=== PATIENT | female | born 1970 | race Caucasian/White ===

== ENCOUNTER 2016-08-15 18:40 | Emergency (ER) | payer BC ==
[~2016-08-15] VITALS: Ht 157.5 cm; Wt 59.3 kg
[2016-08-15 18:44] VITALS: TEMP 36.8; Ht 157.5 cm; Wt 59.3 kg
[2016-08-15] MEDS ORDERED: OXYCODONE HCL IR 5 MG TAB (IMMEDIATE RELEASE) PO STA (19:11)
[2016-08-15] MEDS ORDERED: CHOL2000 PO (19:31)
[2016-08-15] MEDS ORDERED: LEVO88TA3 PO (19:31)
[2016-08-15] MEDS ORDERED: LORA-741 PO (19:31)
[2016-08-15] MEDS ORDERED: BUPRTAB51 PO (19:31)
[2016-08-15] MEDS ORDERED: FLUO20CA35 PO (19:31)
[2016-08-15] MEDS ORDERED: FLUT0.15 NAE (19:31)
[2016-08-15] MEDS ORDERED: CYCL0.052 OP (19:31)
[2016-08-15] MEDS ORDERED: OXYC1TAB3 PO (20:13)
[2016-08-15] MEDS ORDERED: OXYCODONE IR HOME PACK PO ONE (20:15)
--- NOTE | 2016-08-15 20:15 | EMERGENCY ROOM VISIT NOTE ---
History First contact with patient: 18:53 Chief Complaint: ABDOMINAL PAIN Stated Complaint: PAIN IN ABD History of Present Illness The patient is a 45 year old female who presents to the Emergency Room being sent here by her family physician for abdominal pain and abnormality seen on CAT scan. The patient states that she started with abdominal pain on Monday. She states that first she had left pelvic pain but does admit to history of ovarian cyst. For the past 2 days she has pain on the right side of her abdomen. She states that it varies in intensity but is constant. Currently she rates it at a 5 out of 10. The patient denies any nausea or vomiting. The patient denies any fever. She does admit to one or 2 episodes of loose stools since the onset of the symptoms but also had a normal bowel movement. The patient denies any urinary symptoms of frequency, urgency or dysuria. The patient denies any vaginal discharge. The patient states that her father has had multiple colon polyps but has not been diagnosed with colon cancer. The patient also states that she had a colonoscopy 2-3 years ago at [facility] which was normal. The patient called her family doctor today due to her symptoms and was seen and had laboratory work performed which she was told was normal. She was sent for the CAT scan of the abdomen and pelvis. Her doctor then called her later and told her to come to the emergency room and she states "they told me there was a possibility of appendicitis". The patient has not had anything today for pain. She was taking Motrin and Tylenol the past 2 days. Review of Systems 10 system review was performed and was negative unless stated otherwise history of present illness. Past Medical/Surgical History Surgery for intussusception at 8 months and 4 years old. Hypothyroidism Social History Smoking Status: Never Smoker Alcohol Use: occasionally Marital Status: Housing Status: lives with family Occupation Status: employed Current/Historical Medications Scheduled Bupropion (Wellbutrin-Xl), 300 MG PO DAILY Cholecalciferol (Vitamin D3), 2,000 INTER.UNIT PO DAILY Fluoxetine (Prozac), 20 MG PO DAILY Levothyroxine Sodium (Levothyroxine Sodium), 88 MCG PO DAILY Scheduled PRN Cyclosporine (Ophth) (Restasis), 1 DROP OP BID PRN for Dry Eye(s) Fluticasone Propionate (Nasal) (Flonase Allergy Relief), 2 SPRAYS DEEPTHI DAILY PRN for Allergy Symptoms Lorazepam (Ativan), 0.5 MG PO Q8 PRN for Anxiety Allergies Coded Allergies: No Known Allergies (Verified , 05/09/02) Physical Exam Vital Signs Date Time Temp Pulse Resp B/P Pulse Ox O2 Delivery O2 Flow Rate FiO2 08/15/16 18:44 36.8 91 18 114/72 99 Room Air Physical Exam GENERAL: 45-year-old white female appears in no acute distress. MENTAL Status: Alert and oriented 3. EYES: No icterus noted MOUTH: Mucosa is moist NECK: Supple, no lymphadenopathy noted. No carotid bruits noted. LUNGS: Clear auscultation without wheezes rales or rhonchi. CARDIAC: Regular rate and rhythm without murmur. Pulses is full and equal throughout. BACK: No CVA tenderness noted. ABDOMEN: Positive bowel sounds all 4 quadrants. Soft, patient has tenderness palpation in the entire right side of the abdomen. Left side nontender. No organomegaly or masses noted. EXTREMITIES: No cyanosis or edema noted. Medical Decision & Procedures ER Provider Diagnostic Interpretation: Patient Name: CRISTOBAL VILLAFANA Unit Number: [id number] Dictated: 08/15/161735 Transcribed: 08/15/161735 MS Printed Date/Time: [~ rep prt dt]/[~ rep prt tm] [~ rep ct labl] - [~ rep ct ivnm] [facility] [place] [address] Dictated: 08/15/161735 Transcribed: 08/15/16 173 MS Printed Date/Time: [~ rep prt dt]/[~ rep prt tm] [~ rep ct labl] - [~ rep ct ivnm] ABDOMEN AND PELVIS CT WITH IV AND ORAL CONTRAST CT DOSE: 240.07 mGy.cm HISTORY: Pain ABD PAIN TECHNIQUE: Multiaxial CT images of the abdomen and pelvis were performed following the use of intravenous and oral contrast. COMPARISON STUDY: None. FINDINGS: Lung bases are clear. There is a 1.5 cm x 2 cm hypodensity posterior right hepatic lobe transaxial image 17. This suggestive of a small hemangioma. The liver is otherwise uniform. Spleen is uniform. Kidneys enhance appropriately. No evidence for hydronephrosis. Masslike density at the level of the hepatic flexure. Measurements are 4.3 x 3.6 cm. Possibility of an annular neoplasm must be considered. Mild infiltrative change to the associated subcutaneous fat. Secondary considerations include focal colitis although neoplasm is the diagnosis of exclusion. Bowel pattern is nonobstructive. Bilateral ovarian cysts. These are at maximum 3.2 cm on the right and 2.5 cm on the left. Uterus is anteflexed. No significant abdominal pelvic or inguinal adenopathy. Osseous structures are negative for lytic or blastic process. Several small right lower quadrant and right flank nodes measuring up to 1.2 cm. IMPRESSION: 1. Masslike process involving the hepatic flexure of the colon. 2. Measurements are 4.3 x 3.6 cm with mild infiltrative change of the pericolonic fat. 3. Diagnostic considerations including neoplasm versus focal inflammatory process and/or appendagitis epiploica . 4. Colonoscopy/surgical consult is indicated. 5. Bilateral ovarian cysts. 6. Nonobstructive bowel pattern. Electronically signed by: Daniele Shipman M.D. 08/15/2016 5:43 PM Dictated Date/Time: 08/15/2016 5:36 PM The status of this report is Signed. Draft = Not yet reviewed or approved by Radiologist. Signed = Reviewed and approved by Radiologist. <AttendingPhy>Corine Monson M.D.</AttendingPhy> <FamilyPhy>Derrell Shankar MD</FamilyPhy> <PrimaryPhy>Derrell Shankar MD</PrimaryPhy> < UnitNumber>[id number]</UnitNumber> <VisitNumber>[id number]</VisitNumber> < PatientName>VILLAFANACRISTOBAL</PatientName> <DateOfBirth>1970</DateOfBirth> < Location>[facility]</Location> <ServiceDate>08/15/16</ServiceDate> <MNE>ESINDI</MNE> <OrderingPhy>Corine Monson M.D.</OrderingPhy> <OrderingPhyMNE>f rep ord dr dover </OrderingPhyMNE> <DictatingPhyMNE>f rep dict dr dover</DictatingPhyMNE> < CCListMNE>f rep ct mne</CCListMNE> <AdmittingPhyMNE>f pt admit dr dover</ AdmittingPhyMNE> <AttendingPhyMNE>f pt attend dr dover</AttendingPhyMNE> <ConsultingPhyMNE>f pt consult dr dover</ConsultingPhyMNE> <FamilyPhyMNE>f pt fam dr dover</FamilyPhyMNE> <OtherPhyMNE>f pt other dr dover</OtherPhyMNE> < PrimaryPhyMNE>f pt prim care dr dover</PrimaryPhyMNE> <ReferringPhyMNE>f pt referring dr dover</ReferringPhyMNE> Medications Administered Medications (Trade) Dose Ordered Sig/Casimiro Route Start Time Stop Time Status Last Admin Dose Admin Oxycodone HCl (Roxicodone Immediate Rel Tab) 5 mg NOW STAT PO 08/15/16 19:11 08/15/16 19:12 DC 08/15/16 19:22 5 MG ED Course The patient was evaluated. The patient's case was discussed with Dr. Wise who agreed with treatment plan. I reviewed the patient's EMR and got her records from [employer]. The patient had labs today. White count 10.8, hemoglobin 11.5, hematocrit 36, platelet count 219, BUN 9, creatinine 0.8, sodium 139, potassium 4.3 AST 20, alkaline phosphatase 71, a LT 18. Urinalysis was negative. I also obtained the communication from [facility] to the doctor's office which was either interpreted incorrectly or relayed incorrectly from the radiologic technician. There was confusion about a possible acute appendicitis but the diagnosis was actually appendagitis. The other differential and most likely differential was neoplasm. I called the radiologist who read the scan, Dr. Shipman who stated the diagnosis of exclusion is neoplasm. He did state that there was no evidence of acute appendicitis on the scan.. The patient was informed of the miscommunication. The patient was given oxycodone IR 5 mg by mouth for pain. The patient was reevaluated and was feeling better. I offered to have the casework manager set up an appointment with gastroenterology that she stated she will do this on her own. The patient was discharged home in stable condition with her driving. Medical Decision Differential diagnosis include neoplasm, diverticulitis, inflammatory process, appendagitis, acute appendicitis Impression Primary Impression: Right sided abdominal pain Additional Impression: Abnormal abdominal CT scan Departure Information Dispostion Home / Self-Care Condition GOOD Prescriptions Oxycodone Immediate Rel Tab (ROXICODONE IR) 5 Mg Tab 1-2 TAB PO Q6 Y for Severe Pain, #20 TAB Prov: Abigail Shipman PA-C 08/15/16 Referrals Derrell Shankar MD (PCP) Forms Call Back Authorization, HOME CARE DOCUMENTATION FORM, IMPORTANT VISIT INFORMATION Patient Instructions Abdominal Pain - [facility], [facility] Additional Instructions Ibuprofen 600 mg every 6 hours with food for pain. Take OxyIR as needed for more severe pain. Do not drive while taking the OxyIR. This may make you constipated so I would recommend taking MiraLAX daily while taking the oxycodone. Call gastroenterology as soon as possible for a colonoscopy. If you experience any severe abdominal pain, fevers, uncontrolled nausea vomiting return to ER immediately. Problem Qualifiers
[2016-08-15 20:22] VITALS: BP 103/66; PULSE 80; O2SAT 99
== END 2016-08-15 20:24 | disposition home or self-care (01) ==
LOC: C.EDB 18:41
DX: R10.9 Unspecified abdominal pain (principal); R93.5 Abnormal findings on diagnostic imaging of other abdominal regions, including retroperitoneum; E03.9 Hypothyroidism, unspecified; Z79.899 Other long term (current) drug therapy

== ENCOUNTER → 2016-08-15 | Outpatient (CLI) | payer BC ==
[~2016-08-15] MED LIST: BUPRTAB51 PO; CHOL2000 PO; CIPR-255 PO; CYCL0.052 OP; FLUO20CA35 PO; FLUT0.15 NAE; LEVO88TA3 PO; LORA-741 PO; METR-162 PO; OPTIRAY 320 IV PRN; OXYC1TAB3 PO
--- NOTE | 2016-08-15 17:44 | DIAGNOSTIC IMAGING REPORT ---
ABDOMEN AND PELVIS CT WITH IV AND ORAL CONTRAST CT DOSE: 240.07 mGy.cm HISTORY: Pain ABD PAIN TECHNIQUE: Multiaxial CT images of the abdomen and pelvis were performed following the use of intravenous and oral contrast. COMPARISON STUDY: None. FINDINGS: Lung bases are clear. There is a 1.5 cm x 2 cm hypodensity posterior right hepatic lobe transaxial image 17. This suggestive of a small hemangioma. The liver is otherwise uniform. Spleen is uniform. Kidneys enhance appropriately. No evidence for hydronephrosis. Masslike density at the level of the hepatic flexure. Measurements are 4.3 x 3.6 cm. Possibility of an annular neoplasm must be considered. Mild infiltrative change to the associated subcutaneous fat. Secondary considerations include focal colitis although neoplasm is the diagnosis of exclusion. Bowel pattern is nonobstructive. Bilateral ovarian cysts. These are at maximum 3.2 cm on the right and 2.5 cm on the left. Uterus is anteflexed. No significant abdominal pelvic or inguinal adenopathy. Osseous structures are negative for lytic or blastic process. Several small right lower quadrant and right flank nodes measuring up to 1.2 cm. IMPRESSION: 1. Masslike process involving the hepatic flexure of the colon. 2. Measurements are 4.3 x 3.6 cm with mild infiltrative change of the pericolonic fat. 3. Diagnostic considerations including neoplasm versus focal inflammatory process and/or appendagitis epiploica . 4. Colonoscopy/surgical consult is indicated. 5. Bilateral ovarian cysts. 6. Nonobstructive bowel pattern. Electronically signed by: Daniele Shipman M.D. 08/15/2016 5:43 PM Dictated Date/Time: 08/15/2016 5:36 PM
== END | disposition home or self-care (01) ==
LOC: C.CTS 14:59
PROVIDERS: ATTEND Internal Medicine
DX: M54.5 Low back pain (principal); R10.84 Generalized abdominal pain

== ENCOUNTER 2016-09-15 16:50 | Emergency (ER) | payer BC ==
[~2016-09-15] VITALS: Ht 157.5 cm; Wt 59.0 kg
[~2016-09-15 16:50] MED LIST changes: -CIPR-255 PO; -METR-162 PO; -OPTIRAY 320 IV PRN
[2016-09-15 16:58] VITALS: TEMP 36.4; Ht 157.5 cm; Wt 59.0 kg
[2016-09-15] MEDS ORDERED: ONDANSETRON INJ 2 MG/ML 2 ML VIAL IV STA (17:57)
[2016-09-15] MEDS ORDERED: SODIUM CHLORIDE 0.9% 1000ML 1,000 ML IV STA (17:57)
[2016-09-15] MEDS ORDERED: MoRPHine SULFATE 4 MG/ML 1 ML CARP\\VIAL IV PRN (18:00)
--- NOTE | 2016-09-15 18:05 | EMERGENCY ROOM VISIT NOTE ---
History Report prepared by Tabitha: Farzad Pepper Under the Supervision of: Dr. Graham Villatoro D.O. First contact with patient: 17:51 Chief Complaint: ABDOMINAL PAIN Stated Complaint: PAIN IN BACK AND LOWER RT SIDE, HX DIVERTICULITIS Nursing Triage Summary: triage note: pt ambulatory to triage. pt reports she was dx with diverticulitis 3 weeks ago. pt reports "i am having right lower back pain that wraps around which increased yesterday." History of Present Illness The patient is a 46 year old female who presents to the Emergency Room with complaints of constant right flank pain beginning the other day. The patient states that her pain radiates to the right side of her abdomen. She reports that she was diagnosed with diverticulitis a few weeks ago, and her symptoms feel very similar. The patient notes that she had a CT and colonoscopy when she was diagnosis with diverticulitis, and she was given antibiotics for a week. She denies fever, chills, nausea, vomiting, shortness of breath, chest pain, hematuria, and hematochezia. The patient states that she called her surgeon and was told to come to the ER. She denies a history of kidney stones. The patient reports that her last know menstrual period was a few weeks ago, and it was normal. Source of History: patient Onset: a few days ago Position: other (right flank) Timing: constant Associated Symptoms: + abdominal pain, No fevers, No chills, No chest pain, No SOB, No nausea, No vomiting, No hematochezia, No urinary symptoms Review of Systems See HPI for pertinent positives & negatives. A total of 10 systems reviewed and were otherwise negative. Past Medical & Surgical Medical Problems: (1) Diverticulitis Family History Patient reports no known family medical history. Social History Smoking Status: Never Smoker Alcohol Use: occasionally Marital Status: Housing Status: lives with family Occupation Status: employed Current/Historical Medications Scheduled Bupropion (Wellbutrin-Xl), 300 MG PO DAILY Cholecalciferol (Vitamin D3), 2,000 INTER.UNIT PO DAILY Ciprofloxacin Hcl (Cipro), 500 MG PO BID Fluoxetine (Prozac), 20 MG PO DAILY Levothyroxine Sodium (Levothyroxine Sodium), 88 MCG PO DAILY Metronidazole (Flagyl), 500 MG PO TID Scheduled PRN Cyclosporine (Ophth) (Restasis), 1 DROP OP BID PRN for Dry Eye(s) Fluticasone Propionate (Nasal) (Flonase Allergy Relief), 2 SPRAYS DEEPTHI DAILY PRN for Allergy Symptoms Lorazepam (Ativan), 0.5 MG PO Q8 PRN for Anxiety Oxycodone Immediate Rel Tab (Roxicodone Ir), 1-2 TAB PO Q4H PRN for Severe Pain Allergies Coded Allergies: No Known Allergies (Verified , 09/15/16) Physical Exam Vital Signs Date Time Temp Pulse Resp B/P (MAP) Pulse Ox O2 Delivery O2 Flow Rate FiO2 09/15/16 19:34 84 20 125/69 100 09/15/16 16:58 36.4 80 18 120/76 96 Room Air Physical Exam GENERAL: Patient is awake, alert, and in no acute distress. Patient is resting comfortably and showing mild signs of anxiety EYES: The conjunctivae are clear. The pupils are round and reactive. EARS, NOSE, MOUTH AND THROAT: The nose is without any evidence of any deformity. Mucous membranes are moist tongue is midline NECK: The neck is nontender and supple. RESPIRATORY: Normal respiratory effort is noted there is no evidence of wheezing rhonchi or rales CARDIOVASCULAR: Regular rate and rhythm noted there no murmurs rubs or gallops normal S1 normal S2 GASTROINTESTINAL: The abdomen is mildly distended and soft. Bowel sounds are present in all quadrants. No guarding or rigidity. Right upper and left lower quadrant are tender to palpation. BACK: No midline tenderness or or step-off noted range of motion in flexion extension as well as rotation no signs of muscle spasm noted MUSCULOSKELETAL/EXTREMITIES: There is no evidence of gross deformity full range of motion is noted in the hips and shoulders SKIN: There is no obvious evidence of any rash. There are no petechiae, pallor or cyanosis noted. NEUROLOGIC: Patient is awake alert and oriented x3 strength is symmetric patellar reflexes are 2+ bilaterally Medical Decision & Procedures ER Provider Diagnostic Interpretation: X-ray results as stated below per interpretation by me and the radiologist. KUB CLINICAL HISTORY: Generalized abdominal pain. FINDINGS: 2 AP supine abdominal radiographs are correlated with abdominal CT dated 08/15/2016. There is a nonobstructed abdominal bowel gas pattern noting mild to moderate colonic fecal retention. No evidence of intraperitoneal free air is seen on these supine views. There are no abnormal abdominal calcifications. Phleboliths are identified in the pelvis. The bony structures appear intact. The lung bases are clear as imaged. IMPRESSION: Nonobstructed abdominal bowel gas pattern noting mild to moderate colonic fecal retention. Electronically signed by: Zurdo Tinoco M.D. 09/15/2016 6:50 PM Dictated Date/Time: 09/15/2016 6:49 PM SINGLE VIEW CHEST CLINICAL HISTORY: Generalized abdominal pain. FINDINGS: An AP, portable, upright chest radiograph is obtained. No prior studies are available for comparison at the time of dictation. The cardiomediastinal silhouette is unremarkable. The lungs and pleural spaces are clear. No pneumothorax is seen. The bony thorax is grossly intact. IMPRESSION: No active disease in the chest. Electronically signed by: Zurdo Tinoco M.D. 09/15/2016 6:51 PM Dictated Date/Time: 09/15/2016 6:50 PM Laboratory Results 09/15/16 18:00 Red Blood Count 4.20, Mean Corpuscular Volume 88.3, Mean Corpuscular Hemoglobin 28.6, Mean Corpuscular Hemoglobin Concent 32.3, Mean Platelet Volume 10.7, Neutrophils (%) (Auto) 50.1, Lymphocytes (%) (Auto) 34.9, Monocytes (%) (Auto) 11.4, Eosinophils (%) (Auto) 3.1, Basophils (%) (Auto) 0.3, Neutrophils # (Auto ) 2.89, Lymphocytes # (Auto) 2.02, Monocytes # (Auto) 0.66, Eosinophils # (Auto ) 0.18, Basophils # (Auto) 0.02 09/15/16 18:00 Test 09/15/16 18:00 White Blood Count 5.78 K/uL (4.8-10.8) Red Blood Count 4.20 M/uL (4.2-5.4) Hemoglobin 12.0 g/dL (12.0-16.0) Hematocrit 37.1 % (37-47) Mean Corpuscular Volume 88.3 fL (80-100) Mean Corpuscular Hemoglobin 28.6 pg (25-34) Mean Corpuscular Hemoglobin Concent 32.3 g/dl (32-36) Platelet Count 224 K/uL (130-400) Mean Platelet Volume 10.7 fL (7.4-10.4) Neutrophils (%) (Auto) 50.1 % Lymphocytes (%) (Auto) 34.9 % Monocytes (%) (Auto) 11.4 % Eosinophils (%) (Auto) 3.1 % Basophils (%) (Auto) 0.3 % Neutrophils # (Auto) 2.89 K/uL (1.4-6.5) Lymphocytes # (Auto) 2.02 K/uL (1.2-3.4) Monocytes # (Auto) 0.66 K/uL (0.11-0.59) Eosinophils # (Auto) 0.18 K/uL (0-0.5) Basophils # (Auto) 0.02 K/uL (0-0.2) RDW Standard Deviation 41.1 fL (36.4-46.3) RDW Coefficient of Variation 12.8 % (11.5-14.5) Immature Granulocyte % (Auto) 0.2 % Immature Granulocyte # (Auto) 0.01 K/uL (0.00-0.02) Urine Color YELLOW Urine Appearance CLEAR (CLEAR) Urine pH 5.5 (4.5-7.5) Urine Specific [place] 1.014 (1.000-1.030) Urine Protein NEG (NEG) Urine Glucose (UA) NEG (NEG) Urine Ketones NEG (NEG) Urine Occult Blood NEG (NEG) Urine Nitrite NEG (NEG) Urine Bilirubin NEG (NEG) Urine Urobilinogen NEG (NEG) Urine Leukocyte Esterase NEG (NEG) Anion Gap 8.0 mmol/L (3-11) Est Creatinine Clear Calc Drug Dose 69.8 ml/min Estimated GFR () 104.2 Estimated GFR (Non- 89.9 BUN/Creatinine Ratio 10.9 (10-20) Calcium Level 8.7 mg/dl (8.5-10.1) Total Bilirubin 0.4 mg/dl (0.2-1) Direct Bilirubin < 0.1 mg/dl (0-0.2) Aspartate Amino Transf (AST/SGOT) 18 U/L (15-37) Alanine Aminotransferase (ALT/SGPT) 25 U/L (12-78) Alkaline Phosphatase 67 U/L (45-117) Total Protein 7.4 gm/dl (6.4-8.2) Albumin 3.7 gm/dl (3.4-5.0) Lipase 191 U/L (73-393) Human Chorionic Gonadotropin, Qual NEG (NEG) Laboratory results per my review. Medications Administered Medications (Trade) Dose Ordered Sig/Casimiro Route Start Time Stop Time Status Last Admin Dose Admin Sodium Chloride 1,000 ml @ 999 mls/hr Q1H1M STAT IV 09/15/16 17:57 09/15/16 18:57 DC 09/15/16 18:13 999 MLS/HR Ondansetron HCl (Zofran Inj) 4 mg NOW STAT IV 09/15/16 17:57 09/15/16 17:59 DC 09/15/16 18:13 4 MG Morphine Sulfate (MoRPHine SULFATE INJ) 4 mg Q15M PRN IV 09/15/16 18:00 09/15/16 19:56 DC 09/15/16 18:14 4 MG Ciprofloxacin (Cipro Tab) 500 mg NOW STAT PO 09/15/16 19:15 09/15/16 19:16 DC 09/15/16 19:30 500 MG Metronidazole (Flagyl Tab) 500 mg NOW STAT PO 09/15/16 19:15 09/15/16 19:16 DC 09/15/16 19:30 500 MG Ciprofloxacin (Cipro 500MG Home Pack) 1 homepack UD ONCE PO 09/15/16 19:15 09/15/16 19:16 DC 09/15/16 19:29 1 HOMEPACK Oxycodone HCl (Roxicodone Immediate Rel 5MG Home Pack) 1 homepack UD ONCE PO 09/15/16 19:15 09/15/16 19:16 DC 09/15/16 19:30 1 HOMEPACK Ondansetron HCl (ZOFRAN ODT 4MG Home Pack) 1 homepack UD ONCE PO 09/15/16 19:15 09/15/16 19:16 DC 09/15/16 19:30 1 HOMEPACK ED Course 175: The patient was evaluated in room B03B. A complete history and physical examination were performed. 1756: Ordered Zofran Inj 4mg IV, NSS 1,000 ml @ 999 mls/hr IV 1800: Ordered Morphine Sulfate 4mg IV 1914: Ordered Ondansetron HCl 1 homepack PO, Oxycodone HCl 1 homepack PO, Ciprofloxacin 1 homepack PO, Flagyl Tab 500mg PO, Cipro Tab 500mg PO 1915: I discussed the patient's case with Dr Dewey, General Surgery. He recommends the patient is given another dose of antibiotics and follows up with surgery as an outpatient. 1932: Upon reevaluation, the patient is resting comfortably. I discussed the results and treatment plan with her. She verbalized agreement of the treatment plan. The patient was discharged home. Medical Decision Differential diagnosis: Etiologies such as appendicitis, diverticulitis, PUD, biliary pathology, UTI, pancreatitis, obstruction, mesenteric ischemia, aortic pathology, infections, inflammatory bowel disease, renal colic, as well as others were entertained. Medication Reconciliation: I attest that I have personally reviewed the patient' s current medications list. Blood pressure screening: Patient was found to have normal blood pressure on screening and does not require follow-up. The patient is a 46-year-old female who presented to the emergency department for evaluation of right upper quadrant and right flank pain. The patient has a history of diverticulitis which was diagnosed at the end of last month. She had a CAT scan which was very worrisome for an annular lesion in her hepatic flexure of her large colon. She had follow-up with GI and the patient had a colonoscopy which did not reveal any acute tumor but did show signs of diverticulitis in this region. The patient started having pain which returned recently. She did have an entire course of antibiotics and felt that the pain was significantly improved after this course. The patient called her general surgeon today and was referred to the emergency department. Her physical exam did not appear to be consistent with an acute surgical abdomen at this time. I discussed the patient's laboratory radiographic studies with her as well as the on-call general surgeon. At this time I recommended continued course of antibiotics and follow-up with her primary general surgeon this is possible. She was also encouraged to return to the emergency department immediately if symptoms change worsen or need arises. Consults Time Called: 1909 Consulting Physician: Dr. Dewey, General Surgery Returned Call: 1915 I discussed the patient's case with Dr Dewey, General Surgery. He recommends the patient is given another dose of antibiotics and follows up with surgery as an outpatient. Impression Primary Impression: Diverticulitis Additional Impression: RUQ abdominal pain Scribe Attestation The scribe's documentation has been prepared under my direction and personally reviewed by me in its entirety. I confirm that the note above accurately reflects all work, treatment, procedures, and medical decision making performed by me. Departure Information Dispostion Home / Self-Care Prescriptions Oxycodone Immediate Rel Tab (ROXICODONE IR) 5 Mg Tab 1-2 TAB PO Q4H Y for Severe Pain, #24 TAB Prov: Graham Villatoro, DO 09/15/16 Metronidazole (FLAGYL) 500 Mg Tab 500 MG PO TID, #42 TAB Prov: Graham Villatoro, DO 09/15/16 Ciprofloxacin Hcl (CIPRO) 500 Mg Tab 500 MG PO BID, #28 TAB Prov: Graham Villatoro, DO 09/15/16 Referrals No Doctor, Assigned (PCP) Forms Call Back Authorization, HOME CARE DOCUMENTATION FORM, IMPORTANT VISIT INFORMATION Patient Instructions ED Diverticulitis, [facility] Additional Instructions Call the surgeon to schedule a follow-up appointment. Continue all medications as prescribed. Drink plenty clear liquids. Continue using Motrin and Tylenol as directed for mild pain. Return to the emergency department immediately if symptoms worsen or if he develop high fever rigid abdomen severe pain or if need arises. Problem Qualifiers Primary Impression: Diverticulitis Diverticulitis site: large intestine Diverticulitis bleeding: without bleeding Diverticulitis complication: unspecified complication status Qualified Codes: K57.32 - Diverticulitis of large intestine without perforation or abscess without bleeding
[2016-09-15 18:16] LABS: BASO % 0.3 %; BASO ABS # 0.02 K/uL (0-0.2); COMPLETE YES; EOS % 3.1 %; HEMATOCRIT 37.1 % (37-47); IG% 0.2 %; LYMPH % 34.9 %; LYMPH ABS # 2.02 K/uL (1.2-3.4); MEAN CELL VOLUME 88.3 fL (80-100); MEAN CORPUSCULAR HEMOGLOBIN 28.6 pg (25-34); MEAN CORPUSCULAR HGB CONC 32.3 g/dl (32-36); MEAN PLATELET VOLUME 10.7 fL (7.4-10.4); MONO % 11.4 %; NEUT % 50.1 %; PLATELET COUNT 224 K/uL (130-400); WHITE BLOOD COUNT 5.78 K/uL (4.8-10.8)
[2016-09-15 18:20] LABS: URINE APPEARANCE CLEAR (CLEAR); URINE BILIRUBIN NEG (NEG); URINE COLOR YELLOW; URINE NITRITE NEG (NEG); URINE PH 5.5 (4.5-7.5); URINE SPECIFIC GRAVITY 1.014 (1.000-1.030); UROBILINOGEN NEG (NEG)
[2016-09-15 18:21] LABS: MANUAL MICROSCOPIC REQUIRED? NO; REVIEW REQ? NO
[2016-09-15 18:37] LABS: ALT/SGPT 25 U/L (12-78); BLOOD UREA NITROGEN 9 mg/dl (7-18); BUN/CREATININE RATIO 10.9 (10-20); CARBON DIOXIDE 26 mmol/L (21-32); CHLORIDE 105 mmol/L (98-107); CREATININE 0.78 mg/dl (0.60-1.20); GLUCOSE 83 mg/dl (70-99); POTASSIUM 3.6 mmol/L (3.5-5.1); SODIUM 139 mmol/L (136-145)
[2016-09-15 18:38] LABS: PREG INTERNAL NEGATIVE QC NEG CLEAR BACKGROUND; PREG INTERNAL POSITIVE QC POS CONTROL LINE
[2016-09-15 18:40] LABS: ALKALINE PHOSPHATASE 67 U/L (45-117); AST/SGOT 18 U/L (15-37)
[2016-09-15 18:42] LABS: CALCIUM 8.7 mg/dl (8.5-10.1)
--- NOTE | 2016-09-15 18:51 | DIAGNOSTIC IMAGING REPORT ---
KUB CLINICAL HISTORY: Generalized abdominal pain. FINDINGS: 2 AP supine abdominal radiographs are correlated with abdominal CT dated 08/15/2016. There is a nonobstructed abdominal bowel gas pattern noting mild to moderate colonic fecal retention. No evidence of intraperitoneal free air is seen on these supine views. There are no abnormal abdominal calcifications. Phleboliths are identified in the pelvis. The bony structures appear intact. The lung bases are clear as imaged. IMPRESSION: Nonobstructed abdominal bowel gas pattern noting mild to moderate colonic fecal retention. Electronically signed by: Zurdo Tinoco M.D. 09/15/2016 6:50 PM Dictated Date/Time: 09/15/2016 6:49 PM
--- NOTE | 2016-09-15 18:52 | DIAGNOSTIC IMAGING REPORT ---
SINGLE VIEW CHEST CLINICAL HISTORY: Generalized abdominal pain. FINDINGS: An AP, portable, upright chest radiograph is obtained. No prior studies are available for comparison at the time of dictation. The cardiomediastinal silhouette is unremarkable. The lungs and pleural spaces are clear. No pneumothorax is seen. The bony thorax is grossly intact. IMPRESSION: No active disease in the chest. Electronically signed by: Zurdo Tinoco M.D. 09/15/2016 6:51 PM Dictated Date/Time: 09/15/2016 6:50 PM
[2016-09-15] MEDS ORDERED: OXYCODONE IR HOME PACK PO ONE (19:15)
[2016-09-15] MEDS ORDERED: ONDANSETRON HOME PACK 4MG OD TAB PO ONE (19:15)
[2016-09-15] MEDS ORDERED: CIPROFLOXACIN 500 MG TAB PO STA (19:15)
[2016-09-15] MEDS ORDERED: CIPROFLOXACIN 500MG HOME PACK PO ONE (19:15)
[2016-09-15] MEDS ORDERED: METRONIDAZOLE 250 MG TAB PO STA (19:15)
[2016-09-15] MEDS ORDERED: METR-162 PO (19:18)
[2016-09-15] MEDS ORDERED: OXYC1TAB3 PO (19:18)
[2016-09-15] MEDS ORDERED: CIPR-255 PO (19:18)
[2016-09-15 19:34] VITALS: BP 125/69; PULSE 84; O2SAT 100
== END 2016-09-15 19:35 | disposition home or self-care (01) ==
LOC: C.EDB 16:51
DX: K57.92 Diverticulitis of intestine, part unspecified, without perforation or abscess without bleeding (principal); R10.11 Right upper quadrant pain; Z79.899 Other long term (current) drug therapy

== ENCOUNTER 2016-09-16 12:38 | Emergency (ER) | payer BC ==
[~2016-09-16] VITALS: Ht 157.5 cm; Wt 59.5 kg
[~2016-09-16 12:38] MED LIST changes: +CIPR-255 PO; +METR-162 PO
[2016-09-16 12:45] VITALS: Ht 157.5 cm; Wt 59.5 kg
[2016-09-16] MEDS ORDERED: SODIUM CHLORIDE 0.9% 1000ML 1,000 ML IV STA (13:23)
[2016-09-16] MEDS ORDERED: ONDANSETRON INJ 2 MG/ML 2 ML VIAL IV STA (13:23)
[2016-09-16] MEDS ORDERED: OPTIRAY 320 IV PRN (13:30)
[2016-09-16 13:40] LABS: BASO % 0.2 %; BASO ABS # 0.02 K/uL (0-0.2); COMPLETE YES; HEMATOCRIT 37.3 % (37-47); IG% 0.2 %; LYMPH % 15.3 %; LYMPH ABS # 1.51 K/uL (1.2-3.4); MEAN CELL VOLUME 89.4 fL (80-100); MEAN CORPUSCULAR HGB CONC 32.4 g/dl (32-36); MEAN PLATELET VOLUME 11.3 fL (7.4-10.4); MONO % 7.3 %; PLATELET COUNT 214 K/uL (130-400); RED BLOOD COUNT 4.17 M/uL (4.2-5.4); WHITE BLOOD COUNT 9.85 K/uL (4.8-10.8)
[2016-09-16 14:05] LABS: CREATININE 0.8 mg/dl (0.60-1.20)
[2016-09-16 14:06] LABS: BUN/CREATININE RATIO 10.5 (10-20); CALCIUM 8.6 mg/dl (8.5-10.1); POTASSIUM 3.8 mmol/L (3.5-5.1)
--- NOTE | 2016-09-16 14:15 | DIAGNOSTIC IMAGING REPORT ---
SINGLE VIEW CHEST CLINICAL HISTORY: Generalized abdominal pain. FINDINGS: An AP, portable, upright chest radiograph is compared to study dated 09/15/2016. The cardiomediastinal silhouette is unremarkable. The lungs and pleural spaces are clear. No pneumothorax is seen. The bony thorax is grossly intact. There is minimal S-shaped thoracic scoliosis. IMPRESSION: No active disease in the chest. Electronically signed by: Zurdo Tinoco M.D. 09/16/2016 2:14 PM Dictated Date/Time: 09/16/2016 2:14 PM
--- NOTE | 2016-09-16 14:17 | EMERGENCY ROOM VISIT NOTE ---
History First contact with patient: 13:15 Chief Complaint: NAUSEA Stated Complaint: NAUSEA, CHILLS, BACK PAIN, DIVERTICULITIS Nursing Triage Summary: Pt c/o nausea, headache, and back pain Pt dx with diverticulitis Seen in ED yesterday. Denies abd pain or diarrhea. History of Present Illness The patient is a 46 year old female who presents to the Emergency Room with complaints of abdominal pain. The patient had diverticulitis at the end of last month and was treated with Cipro and Flagyl. The patient came to the emergency department yesterday because she was having worsening abdominal pain. Laboratory studies were obtained. She was given prescriptions for Cipro and Flagyl. She was given a prescription for oxycodone but did not take any. She states that today she has nausea which is the most distressing symptom. She states she also has a mild headache. She rates her discomfort a 4/10. She denies any fevers. She denies any vomiting. She denies any diarrhea. She denies any pain in her chest or trouble breathing. She states that she has a scheduled CT scan next month for a recheck. However, the pain has worsened and she presents to the emergency department today. Review of Systems A 10 system review of systems was completed with positives and pertinent negatives listed in the HPI. Past Medical/Surgical History Medical Problems: (1) Diverticulitis Family History Patient reports no known family medical history. Social History Smoking Status: Never Smoker Alcohol Use: occasionally Marital Status: Housing Status: lives with family Occupation Status: employed Current/Historical Medications Scheduled Bupropion (Wellbutrin-Xl), 300 MG PO DAILY Cholecalciferol (Vitamin D3), 2,000 INTER.UNIT PO DAILY Ciprofloxacin Hcl (Cipro), 500 MG PO BID Fluoxetine (Prozac), 20 MG PO DAILY Levothyroxine Sodium (Levothyroxine Sodium), 88 MCG PO DAILY Metronidazole (Flagyl), 500 MG PO TID Scheduled PRN Cyclosporine (Ophth) (Restasis), 1 DROP OP BID PRN for Dry Eye(s) Fluticasone Propionate (Nasal) (Flonase Allergy Relief), 2 SPRAYS DEEPTHI DAILY PRN for Allergy Symptoms Lorazepam (Ativan), 0.5 MG PO Q8 PRN for Anxiety Oxycodone Immediate Rel Tab (Roxicodone Ir), 1-2 TAB PO Q4H PRN for Severe Pain Allergies Coded Allergies: No Known Allergies (Verified , 09/16/16) Physical Exam Vital Signs Date Time Temp Pulse Resp B/P (MAP) Pulse Ox O2 Delivery O2 Flow Rate FiO2 09/16/16 17:10 36.5 75 16 118/71 100 09/16/16 17:00 75 16 118/71 100 Room Air 09/16/16 14:21 76 17 119/70 100 Room Air 09/16/16 12:45 36.5 76 16 119/76 99 Room Air Physical Exam VITALS: Vitals are noted on the nurse's note and reviewed by myself. Vital signs stable. GENERAL: This is a 46-year-old female, in no acute distress, nondiaphoretic, well-developed well-nourished. SKIN: The skin was without rashes, erythema, edema, or bruising. There is no tenting of the skin. Capillary reflex less than 2 seconds. HEAD: Normocephalic atraumatic. EARS: The external ears are normal in appearance EYES: Pupils equal round and reactive to light and accommodation. Conjunctivae without injection, sclerae without icterus. Extraocular movements intact. NOSE: Patent, turbinates without inflammation or discharge. MOUTH: Mucous membranes moist. Tonsils are not enlarged. Pharynx without erythema or exudate. Uvula midline. Airway patent. Tongue does not deviate. NECK: Supple without nuchal rigidity. No JVD. HEART: Regular rate and rhythm without murmurs gallops or rubs. LUNGS: Clear to auscultation bilaterally without wheezes, rales or rhonchi. No retractions or accessory muscle use. ABDOMEN: Positive bowel sounds x 4. Soft, moderate left lower abdominal tenderness, without masses or organomegaly. MUSCULOSKELETAL: No muscle atrophy, erythema, or edema noted. Full range of motion in all extremities. No tenderness to palpation. Normal gait. Strength 5/5 throughout. NEURO: Patient was alert and oriented to person place and time. No focal neurological deficits. Medical Decision & Procedures ER Provider Diagnostic Interpretation: [~ rep ct add3]] CT SCAN OF THE ABDOMEN AND PELVIS WITH IV CONTRAST CLINICAL HISTORY: Generalized abdominal pain. Reported history of recent diverticulitis. COMPARISON STUDY: Abdominal CT dated 08/15/2016. TECHNIQUE: Following the IV administration of 115 cc of Optiray 320, CT scan of the abdomen and pelvis is performed from the lung bases to the proximal femora. Images are reviewed in the axial, sagittal, and coronal planes. IV contrast was administered without complication. Automated dose control exposure was utilized. CT DOSE: 261.20 mGy.cm FINDINGS: Lung bases: The heart is normal in size and without pericardial effusion. The lung bases are clear noting dependent atelectasis. Liver: The contrast-enhanced liver is normal in size, contour, and attenuation. There is no intrahepatic biliary ductal dilatation. The hepatic veins and portal veins are patent. A 2.0 cm low-attenuation lesion in the posterior right lobe of the liver on image were 104 demonstrates foci of peripheral nodular enhancement. A smaller similar-appearing lesion measuring 1.0 cm is seen in the right lobe on image #82. Although incomplete characterized these likely represent benign hemangiomas. Gallbladder: Unremarkable. Spleen: Normal in size and attenuation. Pancreas: Unremarkable. Adrenal glands: Unremarkable. Kidneys: The contrast enhanced kidneys are normal in size and without hydronephrosis. The kidneys enhance symmetrically. Abdominal vasculature: The abdominal aorta is normal in course and caliber. Bowel: The small bowel and colon are normal in course and caliber. There are scattered diverticula noted in the right colon. Inflammatory process at the hepatic flexure seen on 08/15/2016 has resolved. The appendix is not visualized. Peritoneum: There is no intraperitoneal free air or abdominal ascites. There is a small fat-containing umbilical hernia. Postoperative changes seen within the ventral upper abdominal wall. Lymphadenopathy: None. Pelvic viscera: The bladder, uterus, and adnexa are normal as visualized noting bilateral ovarian follicles. Skeletal structures: No lytic or blastic lesions are seen. There is moderate degenerative disc space narrowing at L5-S1. IMPRESSION: 1. There are no acute infectious or inflammatory findings in the abdomen or pelvis. 2. The inflammatory process involving the hepatic flexure of the colon seen on 08/15/2016 has resolved. 3. There are scattered diverticula of the right colon identified. 4. There are 2 low suspicion liver lesions identified. Alternatively incompletely characterized, the enhancement kinetics strongly suggest benign hemangiomas. SINGLE VIEW CHEST CLINICAL HISTORY: Generalized abdominal pain. FINDINGS: An AP, portable, upright chest radiograph is compared to study dated 09/15/2016. The cardiomediastinal silhouette is unremarkable. The lungs and pleural spaces are clear. No pneumothorax is seen. The bony thorax is grossly intact. There is minimal S-shaped thoracic scoliosis. IMPRESSION: No active disease in the chest. Laboratory Results 09/16/16 12:55 Red Blood Count 4.17, Mean Corpuscular Volume 89.4, Mean Corpuscular Hemoglobin 29.0, Mean Corpuscular Hemoglobin Concent 32.4, Mean Platelet Volume 11.3, Neutrophils (%) (Auto) 76.0, Lymphocytes (%) (Auto) 15.3, Monocytes (%) (Auto) 7.3, Eosinophils (%) (Auto) 1.0, Basophils (%) (Auto) 0.2, Neutrophils # (Auto) 7.48, Lymphocytes # (Auto) 1.51, Monocytes # (Auto) 0.72, Eosinophils # (Auto) 0.10, Basophils # (Auto) 0.02 09/16/16 12:55 Test 09/16/16 12:55 09/16/16 13:50 09/16/16 14:00 White Blood Count 9.85 K/uL (4.8-10.8) Red Blood Count 4.17 M/uL (4.2-5.4) Hemoglobin 12.1 g/dL (12.0-16.0) Hematocrit 37.3 % (37-47) Mean Corpuscular Volume 89.4 fL (80-100) Mean Corpuscular Hemoglobin 29.0 pg (25-34) Mean Corpuscular Hemoglobin Concent 32.4 g/dl (32-36) Platelet Count 214 K/uL (130-400) Mean Platelet Volume 11.3 fL (7.4-10.4) Neutrophils (%) (Auto) 76.0 % Lymphocytes (%) (Auto) 15.3 % Monocytes (%) (Auto) 7.3 % Eosinophils (%) (Auto) 1.0 % Basophils (%) (Auto) 0.2 % Neutrophils # (Auto) 7.48 K/uL (1.4-6.5) Lymphocytes # (Auto) 1.51 K/uL (1.2-3.4) Monocytes # (Auto) 0.72 K/uL (0.11-0.59) Eosinophils # (Auto) 0.10 K/uL (0-0.5) Basophils # (Auto) 0.02 K/uL (0-0.2) RDW Standard Deviation 41.7 fL (36.4-46.3) RDW Coefficient of Variation 12.8 % (11.5-14.5) Immature Granulocyte % (Auto) 0.2 % Immature Granulocyte # (Auto) 0.02 K/uL (0.00-0.02) Anion Gap 6.0 mmol/L (3-11) Est Creatinine Clear Calc Drug Dose 68.0 ml/min Estimated GFR () 101.0 Estimated GFR (Non- 87.2 BUN/Creatinine Ratio 10.5 (10-20) Calcium Level 8.6 mg/dl (8.5-10.1) Total Bilirubin 0.5 mg/dl (0.2-1) Aspartate Amino Transf (AST/SGOT) 17 U/L (15-37) Alanine Aminotransferase (ALT/SGPT) 24 U/L (12-78) Alkaline Phosphatase 55 U/L (45-117) Total Protein 7.1 gm/dl (6.4-8.2) Albumin 3.6 gm/dl (3.4-5.0) Globulin 3.5 gm/dl (2.5-4.0) Albumin/Globulin Ratio 1.0 (0.9-2) Lipase 133 U/L (73-393) Urine Color YELLOW Urine Appearance TURBID (CLEAR) Urine pH >= 9.0 (4.5-7.5) Urine Specific [place] 1.021 (1.000-1.030) Urine Protein NEG (NEG) Urine Glucose (UA) NEG (NEG) Urine Ketones NEG (NEG) Urine Occult Blood NEG (NEG) Urine Nitrite NEG (NEG) Urine Bilirubin NEG (NEG) Urine Urobilinogen NEG (NEG) Urine Leukocyte Esterase NEG (NEG) Urine WBC (Auto) 1-5 /hpf (0-5) Urine RBC (Auto) 0-4 /hpf (0-4) Urine Hyaline Casts (Auto) 1-5 /lpf (0-5) Urine Epithelial Cells (Auto) >30 /lpf (0-5) Urine Bacteria (Auto) 1+ (NEG) Lactic Acid Level 1.2 mmol/L (0.4-2.0) Medications Administered Medications (Trade) Dose Ordered Sig/Casimiro Route Start Time Stop Time Status Last Admin Dose Admin Sodium Chloride 1,000 ml @ 999 mls/hr Q1H1M STAT IV 09/16/16 13:23 09/16/16 14:23 DC 09/16/16 13:56 999 MLS/HR Ondansetron HCl (Zofran Inj) 4 mg NOW STAT IV 09/16/16 13:23 09/16/16 13:25 DC 09/16/16 13:56 4 MG ED Course The patient was seen and examined. Previous visits were reviewed. The patient does not have a fever or leukocytosis. She does not have any significant electrolyte abnormalities. Lactic acid was not elevated. Lipase was not elevated. Urinalysis was negative. The patient was hydrated with normal saline She was given 4 mg IV Zofran. She declined pain medication throughout her stay Chest x-ray was negative for free air A CT scan was obtained with IV and oral contrast. The previous area of inflammation and diverticulitis has completely resolved. There is an incidental finding of what appeared to be 2 small hemangiomas in the liver. She was advised of this. The patient presents to the emergency department with nausea, headache and abdominal pain. The patient had diverticulitis last month. She had a colonoscopy in follow-up. She presented to the emergency department last night with recurrence of pain. She was empirically started on Cipro and Flagyl. She was also given IV narcotics at that time. She returns to the emergency department today complaining of nausea, headache and mild abdominal pain. She was feeling much better after the above treatment. The abdominal tenderness resolved. Patient did have a headache but no signs or symptoms of meningitis. She does have a history of migraines. It is possible that some of her symptoms were patient related. There is no evidence for diverticulitis on the CT today. The patient should follow-up with her family doctor and warp clamper and surgeon for further evaluation and management. She should return with any worsening symptoms. The patient was also seen and examined by who agrees with the assessment and treatment plan. Medication Reconciliation: I attest that I have personally reviewed the patient' s current medication list. Blood pressure screening: The patient was found to have normal blood pressure on screening and does not require follow-up Medical Decision DIFFERENTIAL DIAGNOSIS: Hepatitis, cholecystitis, cholangitis, biliary colic, pancreatitis, pneumonia, subdiaphragmatic abscess, appendicitis, inguinal hernia , nephrolithiasis, inflammatory bowel disease, mesenteric adenitis, peptic ulcer disease, GERD, gastritis, pancreatitis, myocardial infarction, pericarditis, ruptured aortic aneurysm, appendicitis, gastroenteritis, bowel obstruction, splenic infarct, diverticulitis, mesenteric ischemia, metabolic, peritonitis, among others. Impression Primary Impression: Abdominal pain Additional Impressions: Nausea Headache Departure Information Dispostion Home / Self-Care Condition GOOD Referrals Derrell Shankar MD (PCP) Patient Instructions Abdominal Pain - [facility], [facility] Additional Instructions Zofran as prescribed as needed for nausea/vomiting Follow up with your family doctor early next week for recheck Return with worsening symptoms Problem Qualifiers Primary Impression: Abdominal pain Abdominal location: lower abdomen, unspecified Qualified Codes: R10.30 - Lower abdominal pain, unspecified Additional Impressions: Headache Intractability: not intractable
[2016-09-16 14:39] LABS: URINE APPEARANCE TURBID (CLEAR); URINE BILIRUBIN NEG (NEG); URINE COLOR YELLOW; URINE EPITHELIAL CELL AUTO >30 /lpf (0-5); URINE NITRITE NEG (NEG); URINE PH >= 9.0 (4.5-7.5); URINE SPECIFIC GRAVITY 1.021 (1.000-1.030); UROBILINOGEN NEG (NEG); ZZUR CULT IF INDIC CLEAN CATCH YES
[2016-09-16 14:49] LABS: MANUAL MICROSCOPIC REQUIRED? NO; REVIEW REQ? NO
[2016-09-16] MEDS ORDERED: MoRPHine SULFATE 4 MG/ML 1 ML CARP\\VIAL IV STA (15:23)
--- NOTE | 2016-09-16 16:54 | DIAGNOSTIC IMAGING REPORT ---
CT SCAN OF THE ABDOMEN AND PELVIS WITH IV CONTRAST CLINICAL HISTORY: Generalized abdominal pain. Reported history of recent diverticulitis. COMPARISON STUDY: Abdominal CT dated 08/15/2016. TECHNIQUE: Following the IV administration of 115 cc of Optiray 320, CT scan of the abdomen and pelvis is performed from the lung bases to the proximal femora. Images are reviewed in the axial, sagittal, and coronal planes. IV contrast was administered without complication. Automated dose control exposure was utilized. CT DOSE: 261.20 mGy.cm FINDINGS: Lung bases: The heart is normal in size and without pericardial effusion. The lung bases are clear noting dependent atelectasis. Liver: The contrast-enhanced liver is normal in size, contour, and attenuation. There is no intrahepatic biliary ductal dilatation. The hepatic veins and portal veins are patent. A 2.0 cm low-attenuation lesion in the posterior right lobe of the liver on image were 104 demonstrates foci of peripheral nodular enhancement. A smaller similar-appearing lesion measuring 1.0 cm is seen in the right lobe on image #82. Although incomplete characterized these likely represent benign hemangiomas. Gallbladder: Unremarkable. Spleen: Normal in size and attenuation. Pancreas: Unremarkable. Adrenal glands: Unremarkable. Kidneys: The contrast enhanced kidneys are normal in size and without hydronephrosis. The kidneys enhance symmetrically. Abdominal vasculature: The abdominal aorta is normal in course and caliber. Bowel: The small bowel and colon are normal in course and caliber. There are scattered diverticula noted in the right colon. Inflammatory process at the hepatic flexure seen on 08/15/2016 has resolved. The appendix is not visualized. Peritoneum: There is no intraperitoneal free air or abdominal ascites. There is a small fat-containing umbilical hernia. Postoperative changes seen within the ventral upper abdominal wall. Lymphadenopathy: None. Pelvic viscera: The bladder, uterus, and adnexa are normal as visualized noting bilateral ovarian follicles. Skeletal structures: No lytic or blastic lesions are seen. There is moderate degenerative disc space narrowing at L5-S1. IMPRESSION: 1. There are no acute infectious or inflammatory findings in the abdomen or pelvis. 2. The inflammatory process involving the hepatic flexure of the colon seen on 08/15/2016 has resolved. 3. There are scattered diverticula of the right colon identified. 4. There are 2 low suspicion liver lesions identified. Alternatively incompletely characterized, the enhancement kinetics strongly suggest benign hemangiomas. Electronically signed by: Zurdo Tinoco M.D. 09/16/2016 4:53 PM Dictated Date/Time: 09/16/2016 4:43 PM
[2016-09-16 17:10] VITALS: BP 118/71; PULSE 75; TEMP 36.5; O2SAT 100
== END 2016-09-16 17:10 | disposition home or self-care (01) ==
LOC: C.EDB 12:39
DX: R11.0 Nausea (principal); R10.9 Unspecified abdominal pain; M54.9 Dorsalgia, unspecified; K57.30 Diverticulosis of large intestine without perforation or abscess without bleeding

== ENCOUNTER 2017-10-30 10:19 | Day surgery (SDC) | payer BC, SELFPAY ==
[2017-10-24 11:13] VITALS: BMI 23.0
--- NOTE | 2017-10-26 13:33 | PAT Medication Instructions ---
Service Date Oct 26, 2017. Current Home Medication List Bupropion (Wellbutrin-Xl), 300 MG PO QAM Cholecalciferol (Vitamin D3), 2,000 INTER.UNIT PO QAM Cyclosporine (Ophth) (Restasis), 1 DROP OP BID PRN for Dry Eye(s) Fluoxetine (Prozac), 20 MG PO QAM Fluticasone Propionate (Nasal) (Flonase Allergy Relief), 2 SPRAYS DEEPTHI DAILY PRN for Allergy Symptoms Levothyroxine Sodium (Levothyroxine Sodium), 88 MCG PO QAM Lorazepam (Ativan), 0.5 MG PO Q8 PRN for Anxiety Medication Instructions For Your Scheduled Surgery - Hold the following medications the morning of surgery: Cholecalciferol (Vitamin D3), 2,000 INTER.UNIT PO QAM - Take the following medications the morning of surgery with a sip of water: Bupropion (Wellbutrin-Xl), 300 MG PO QAM Cyclosporine (Ophth) (Restasis), 1 DROP OP BID PRN for Dry Eye(s) (if needed) Fluoxetine (Prozac), 20 MG PO QAM Fluticasone Propionate (Nasal) (Flonase Allergy Relief), 2 SPRAYS DEEPTHI DAILY PRN for Allergy Symptoms (if needed) Levothyroxine Sodium (Levothyroxine Sodium), 88 MCG PO QAM Lorazepam (Ativan), 0.5 MG PO Q8 PRN for Anxiety (if needed) - Take the following medications as scheduled the night before surgery: Lorazepam (Ativan), 0.5 MG PO Q8 PRN for Anxiety (if needed) Fluticasone Propionate (Nasal) (Flonase Allergy Relief), 2 SPRAYS DEEPTHI DAILY PRN for Allergy Symptoms (if needed) Cyclosporine (Ophth) (Restasis), 1 DROP OP BID PRN for Dry Eye(s) (if needed) If you have any questions please call us at [phone] or [phone] or [phone]
[2017-10-26 13:37] VITALS: BMI 24.0
[2017-10-26 14:36] LABS: BASO % 0.2 %; BASO ABS # 0.01 K/uL (0-0.2); EOS % 1.1 %; EOS ABS # 0.07 K/uL (0-0.5); HEMATOCRIT 38.1 % (37-47); HEMOGLOBIN 12.6 g/dL (12.0-16.0); IG# 0.01 K/uL (0.00-0.02); LYMPH % 36.1 %; LYMPH ABS # 2.24 K/uL (1.2-3.4); MEAN CELL VOLUME 86.4 fL (80-100); MEAN CORPUSCULAR HEMOGLOBIN 28.6 pg (25-34); MEAN CORPUSCULAR HGB CONC 33.1 g/dl (32-36); MEAN PLATELET VOLUME 11.3 fL (7.4-10.4); MONO % 7.7 %; MONO ABS # 0.48 K/uL (0.11-0.59); NEUT % 54.7 %; NEUT ABS # 3.39 K/uL (1.4-6.5); PLATELET COUNT 238 K/uL (130-400); RED CELL DISTRIBUTION WIDTH CV 12.4 % (11.5-14.5); RED CELL DISTRIBUTION WIDTH SD 39.6 fL (36.4-46.3)
[2017-10-26 14:47] LABS: INR 0.9 (0.9-1.1); PTT PATIENT 26.8 SECONDS (21.0-31.0)
[2017-10-26 15:59] LABS: CALCIUM 8.9 mg/dl (8.5-10.1); CREATININE 0.88 mg/dl (0.60-1.20)
[~2017-10-30] VITALS: Ht 157.5 cm; Wt 60.4 kg
[~2017-10-30 10:19] MED LIST changes: +ATROPINE SULFATE 0.1 MG/ML 5ML SYR IV PRN; +CEFAZOLIN 2000MG IV PUSH 15 ML IV SCH; -CIPR-255 PO; +EpHEDrine SULFATE INJ 50 MG/ML AMP IV PRN; +EpHEDrine SULFATE INJ 50 MG/ML AMP ONE; +FENTANYL CITRATE INJ 50 MCG/1 ML 2 ML VIAL IV PRN; +FENTANYL CITRATE INJ 50 MCG/1 ML 2 ML VIAL ONE; +FLUMAZENIL 0.1 MG/1 ML 10 ML VIAL IV PRN; +HYDROmorphone INJ 2 MG/ML SYR/VIAL IV PRN; +LABETALOL HCL IV 5 MG/ML 20ML IV PRN; +LACTATED RINGER'S 1000ML 1,000 ML IV SCH; +MEPERIDINE HCL 25 MG/ML CARP IV PRN; -METR-162 PO; +MIDAZOLAM HCL 1 MG/ML 2ML VIAL ONE; +NALOXONE HCL 0.4 MG/1 ML VIAL/CARP IV PRN; +ONDANSETRON INJ 2 MG/ML 2 ML VIAL IV PRN; -OXYC1TAB3 PO; +PHENYLEPHRINE 100MCG/ML 5ML SYR IV PRN; +PHENYLEPHRINE 100MCG/ML 5ML SYR ONE
[2017-10-30] MEDS ORDERED: CETI5TAB5 PO (10:45)
[2017-10-30 10:48] VITALS: BP 116/89; PULSE 86; TEMP 36.9; O2SAT 98; Ht 157.5 cm; Wt 60.4 kg
[2017-10-30] MEDS ORDERED: SCOPOLAMINE 1.5 MG TDSY TD ONE (10:52)
--- NOTE | 2017-10-30 12:11 | History & Physical Bridge Note ---
H&P Re-Evaluation Bridge Note: I have examined the patient, reviewed the History & Physical and in the interval since the performance of the History & Physical I have noted the following changes of clinical significance: No changes noted
[2017-10-30] MEDS ORDERED: LIDOCAINE/EPINEPHRINE 1% 20 ML VIAL ONE (12:17)
[2017-10-30] MEDS ORDERED: EpINEphrine HCL INJ 1 MG/ML 1ML SYRINGE ONE (12:17)
[2017-10-30] MEDS ORDERED: LIDOCAINE HCL 1% 20 ML VIAL ONE (12:17)
[2017-10-30] MEDS ORDERED: BUPIVACAINE 0.25% 30 ML VIAL ONE (12:18)
[2017-10-30] MEDS ORDERED: ONDANSETRON INJ 2 MG/ML 2 ML VIAL ONE ×2 (12:42→13:20)
[2017-10-30] MEDS ORDERED: ROCURONIUM BROMIDE 10 MG/ML 5 ML VIAL ONE (13:20)
[2017-10-30] MEDS ORDERED: PROPOFOL IV EMULSION 10 MG/ML 20 ML VIAL ONE (13:20)
[2017-10-30] MEDS ORDERED: LIDOCAINE HCL 2% 2 ML VIAL (20MG/ML) ONE (13:20)
[2017-10-30] MEDS ORDERED: LARYING-O-JET KIT (LTA) ONE (13:20)
[2017-10-30] MEDS ORDERED: GLYCOPYRROLATE INJ 0.2 MG/ML VIAL ONE (13:20)
[2017-10-30] MEDS ORDERED: NEOSTIGMINE METHYLSULFATE 5 MG/5 ML SYR ONE (13:20)
--- NOTE | 2017-10-30 15:09 | [facility] Post Operative Brief Note ---
Immediate Operative Summary Operative Date Oct 30, 2017. Pre-Operative Diagnosis Encounter for Cosmetic Surgery Post-Operative Diagnosis Same as Preop Procedure(s) Performed Suction Assisted Lipectomy of the Abdomen and Flanks, Abdominal Scar Revision Surgeon Dr. Che Guerrero Food Assembler Kitchen Surgeon(s) None Estimated Blood Loss 25ML Findings Consistent with Post-Op Diagnosis Specimens none per surgeon Dr. Che Guerrero Anesthesia Type General Complication(s) none Disposition Disposition: Recovery Room / PACU
[2017-10-30] MEDS ORDERED: MoRPHine SULFATE 2 MG/ML CARP IV PRN (15:15)
[2017-10-30] MEDS ORDERED: METOCLOPRAMIDE HCL INJ 5 MG/ML 2 ML VIAL IV PRN (15:15)
[2017-10-30] MEDS ORDERED: OXYCODONE/ACETAMINOPHEN 5-325 TAB PO PRN ×2 (15:15)
[2017-10-30] MEDS ORDERED: ONDANSETRON INJ 2 MG/ML 2 ML VIAL IV PRN (15:15)
[2017-10-30] MEDS ORDERED: MoRPHine SULFATE 4 MG/ML 1 ML CARP\\VIAL IV PRN ×2 (15:15)
--- NOTE | 2017-10-30 15:18 | Discharge Instructions ---
Discharge Instructions Date of Service Oct 30, 2017. Admission Reason for Admission: Encounter For Cosmetic Surgery Discharge Discharge Diagnosis / Problem: cosmetic surgery Discharge Goals Goal(s): Decrease discomfort Activity Recommendations Activity Limitations: per Instructions/Follow-up section . Instructions / Follow-Up Instructions / Follow-Up ACTIVITY RECOMMENDATIONS: __Normal activities _x_No bending, lifting or straining __No driving _x_Driving allowed when you are off pain medications _x_Walking permitted __You should have help at home for ___ days DRESSINGS: __No dressings required x__Keep dressings dry/in place until first office visit __Remove dressings ___ and leave dressings off __Apply ice ___ days __Remove dressings and reapply garment __Apply antibiotic ointment (Bacitracin, Neosporin, etc) to wounds 3-4 times/ day for 10 days BATHING: __Keep dressings dry _x_Sponge bathing permitted __Showering permitted __No swimming, hot tubs or soaking in a tub MEDICATIONS: Resume previous medications unless instructed otherwise by your surgeon. x__Do not use aspirin, Motrin, Advil or Ibuprofen as these may promote bleeding. Please use Tylenol. _x_Prescription(s) provided: in office OTHER INSTRUCTIONS: __Record drain output 2-3 times per day SPECIAL CARE INSTRUCTIONS: * It is normal to have a mild fever after surgery. If your temperature is higher than 101.5 degrees F, please call the office at [phone]. * Constipation is a typical side effect of pain medication. An over-the- counter stool softener will help relieve this. * Leaking around surgical drains may occur and should not cause concern. Sometimes these drains become clogged. If this happens, remove the bulb and milk the clot out of the tube, then replace the bulb. * Drainage from wounds after liposuction is normal and should be expected. Garments will become soiled. You should protect furniture and bedding. This drainage should mostly subside within 2-3 days. Leave garments in place unless instructed to remove them. * If you have unusual drainage from a wound or are concerned you have an infection or have any questions or concerns, please call the office at [phone]. FOLLOW UP VISIT: If not already scheduled, please call the office, , when you return home after surgery to schedule an appointment to be seen in __2_ days. Current Hospital Diet Patient's current hospital diet: Discharge Diet Recommended Diet: Regular Diet Procedures Procedures Performed: Suction Assisted Lipectomy of the Abdomen and Flanks, Abdominal Scar Revision Pending Studies Studies pending at discharge: no Medical Emergencies . Who to Call and When: Medical Emergencies: If at any time you feel your situation is an emergency, please call 911 immediately. . Non-Emergent Contact Non-Emergency issues call your: Surgeon Call Non-Emergent contact if: you have a fever, temperature is above 101.5, your pain is not controlled, your pain is worsening, wound has increased redness , wound has increased pain . "Provider Documentation" section prepared by Che Guerrero. . [place] Drug Monitoring Program Search Results: patient reviewed within database, no issues identified
--- NOTE | 2017-10-30 15:51 | Anesthesiology Progress Note ---
Anesthesia Post Op Note Date & Time Oct 30, 2017 at 15:51 Vital Signs Pain Intensity: 0 Vital Signs Past 12 Hours Date Time Temp Pulse Resp B/P (MAP) Pulse Ox O2 Delivery O2 Flow Rate FiO2 10/30/17 15:45 82 16 118/79 95 Room Air 10/30/17 15:35 76 16 119/73 97 Oxymask 3 10/30/17 15:25 75 16 115/71 98 Oxymask 5 10/30/17 15:18 36.0 83 16 111/69 98 Oxymask 5 10/30/17 10:48 36.9 86 16 116/89 (98) 98 Room Air Notes Mental Status: alert / awake / arousable, participated in evaluation Pt Amnestic to Procedure: Yes Nausea / Vomiting: adequately controlled Pain: adequately controlled Airway Patency, RR, SpO2: stable & adequate BP & HR: stable & adequate Hydration State: stable & adequate Anesthetic Complications: no major complications apparent
[2017-10-30 16:00] VITALS: BP 118/74; PULSE 78; TEMP 36.4; O2SAT 95
[2017-10-30 16:30] VITALS: BP 107/66; PULSE 76; TEMP 36.8; O2SAT 95
[2017-10-30 16:55] VITALS: BP 109/71; PULSE 85; TEMP 37; O2SAT 96
--- NOTE | 2017-11-01 08:35 | OPERATIVE REPORT ---
DATE OF OPERATION: 10/30/2017 PREOPERATIVE DIAGNOSES: Abdominal lipodystrophy, abdominal scar, encounter for cosmetic surgery. POSTOPERATIVE DIAGNOSES: Abdominal lipodystrophy, abdominal scar, encounter for cosmetic surgery. PROCEDURE: Suction-assisted lipectomy, abdomen and flanks and revision of upper abdominal scar. SURGEON: Che Guerrero MD CONTINUOUS MINING OPERATOR: None. ANESTHESIA: General. COMPLICATIONS: None. INDICATION FOR THE PROCEDURE: The patient is a 47-year-old female who presented to my office with complaints of a depressed and non-cosmetic scar of her upper abdomen as well as excess abdominal fat. She desired to undergo suction-assisted lipectomy and scar revision. Of note, she had been prepped for a prior consultation for cool sculpting and had initially been scheduled for liposuction without scar revision by another area plastic surgeon. She sought a second opinion and I felt it would be reasonable to perform both procedures concurrently. BRIEF DESCRIPTION OF THE PROCEDURE: The risks, benefits and alternatives of the procedure were explained to the patient who agreed and signed consent. She was identified and marked in the preoperative holding area. She was brought to the operating room. She was positioned supine and placed under general anesthesia. Surgical sites were prepped and draped sterilely. A time-out procedure was performed. Markings were reassessed for the scar revision which incorporated the depressed scar as well as some surrounding excess soft tissue in order to ideally provide better eversion of the wound edges. I began with the liposuction. Several small stab incisions were made in the suprapubic area, lateral abdomen and along the planned scar excision. 1% lidocaine with epinephrine was used to anesthetize each of these areas prior to making a small incision. Tumescent fluid consisting of lactated Ringer's epinephrine and lidocaine was used to tumesce the upper, mid and lower abdomen as well as the flanks. A total of 1600 mL of tumescent fluid was used with 90 mL in each of the upper abdomen, 200 mL in each flank and the remainder in the mid and lower abdomen. I began with a 4 mm suction cannula. This was used to perform liposuction in the subscarpal plain both in the flanks, upper abdomen, mid abdomen. Prior to applying suction, pre-tunneling in all directions was performed. Liposuction was performed using fanning technique from multiple different access incisions. I then switched to the 3 mm suction cannula to provide better contour. This was performed somewhat more superficially. A total of 1500 mL of lipoaspirate was obtained. Endpoints of liposuction were bloody drainage and uniform pinch. I then began the scar revision. 1% lidocaine with epinephrine was used to anesthetize the planned incisions. A 15 blade scalpel was used to make the incision into the dermis. Incision was deepened using electrocautery and was carried down to abdominal fascia. The scar was then excised off of the abdominal fascia. Wound edges were easily able to be approximated without any significant undermining beyond what was required to release scar tissue. The wound was reapproximated using 2-0 Vicryl Dangelo's fascia sutures, 2-0 Vicryl deep dermal sutures, 3-0 PDS interrupted dermal sutures and 3-0 Monocryl running subcuticular suture. Total wound closure length was 38 cm. Following this, there was excellent eversion of the wound edges and good contour to the abdomen. The small stab incisions were closed using 5-0 nylon interrupted suture. Dermabond Prineo was applied to the upper abdominal wound. ABD pads and an abdominal binder were placed. The procedure was tolerated well. Estimated blood loss was about 25 mL. The patient was awakened and transferred to the recovery in satisfactory condition. I attest to the content of the Intraoperative Record and any orders documented therein. Any exception s are noted below.
== END 2017-10-30 17:11 | disposition home or self-care (01) ==
LOC: C.ACU 10:19
PROVIDERS: ATTEND Plastic Surgery
DX: Z41.1 Encounter for cosmetic surgery (principal); E88.1 Lipodystrophy, not elsewhere classified; L90.5 Scar conditions and fibrosis of skin; F32.9 Major depressive disorder, single episode, unspecified; E03.9 Hypothyroidism, unspecified; F41.9 Anxiety disorder, unspecified; M35.00 Sjogren syndrome, unspecified